=== PATIENT | female | born 1970 | race Caucasian/White ===

== ENCOUNTER 2018-03-17 11:40 | Observation (INO) ==
--- NOTE | 2018-03-17 12:28 | ED ---
HPI General Chief complaint: Recheck/Abnormal Lab/Rx Stated complaint: Medical Complaint Time Seen by Provider: 03/17/18 12:35 Source: patient Mode of arrival: ambulatory Limitations: no limitations History of Present Illness HPI narrative: Patient comes in stating that her primary care Dr. Soto Barbosa gave her a call stating that her hemoglobin is low at 7.... She was advised to come to the ER. Patient denies any active chest pain shortness of breath dizziness lightheadedness. Patient denied any hematuria, hematochezia, or GI bleed. However patient does state that she has a very heavy flow of her menses...deneis nsaids, or any other anticoagulants Radiation: non-radiation Severity: mild Pain Consistency: now resolved Relieving factors: none Exacerbating factors: none Associated symptoms: denies other symptoms Treatments prior to arrival: none Related Data Previous Rx's Medication Instructions Recorded docusate sodium [Colace] 100 mg PO DAILY #30 cap 03/18/18 ferrous sulfate [FerrouSul] 325 mg PO DAILY 30 Days #30 tab 03/18/18 Allergies Allergy/AdvReac Type Severity Reaction Status Date / Time No Known Allergies Allergy Uncoded 03/04/12 16:21 Review of Systems Except as stated in HPI: all other systems reviewed are negative PMFSH History History Provided By: Patient Social History Social History Substance History: No History of Abuse Second Hand Smoke Exposure: No Smoking Status: Never smoker How Often Do You Have a Drink Containing Alcohol: 2 to 3 times a week Recent Travel in [facility] within the Last 8 Weeks: No Recent Out of Country Travel within the Last 8 Weeks: No Exam Narrative Exam Narrative: GENERAL: Well-nourished, well-developed female with conjunctival pallor noted SKIN: Warm and dry. HEAD: Atraumatic. Normocephalic. EYES: Pupils equal and round. No scleral icterus. No injection or drainage. ENT: No nasal bleeding or discharge. Mucous membranes pink and moist. NECK: Trachea midline. No JVD. CARDIOVASCULAR: Regular rate and rhythm. no rubs or gallops RESPIRATORY: No accessory muscle use. Clear to auscultation. Breath sounds equal bilaterally. GASTROINTESTINAL: Abdomen soft, non-tender, nondistended. No rebound or guarding MUSCULOSKELETAL: Extremities without clubbing, cyanosis, or edema. No obvious deformities. NEUROLOGICAL: Awake and alert. No obvious cranial nerve deficits. Motor grossly within normal limits. Five out of 5 muscle strength in the arms and legs. Normal speech. PSYCHIATRIC: Appropriate mood and affect; insight and judgment normal. Course Initial Documented Vital Signs Temperature 98.9 F 03/17/18 11:58 Pulse Rate 62 03/17/18 11:58 Respiratory Rate 16 03/17/18 11:58 Blood Pressure 115/59 L 03/17/18 11:58 Pulse Oximetry 100 03/17/18 11:58 Last Documented Vital Signs Temperature 98.2 F 03/18/18 12:00 Pulse Rate 63 03/18/18 12:00 Respiratory Rate 16 03/18/18 12:00 Blood Pressure 120/66 03/18/18 12:00 Pulse Oximetry 96 03/18/18 12:00 Medical Decision Making Lab Data Lab results reviewed: Yes I reviewed the patient's lab results. Result diagrams: 03/18/18 05:01 03/18/18 05:01 Lab Results 03/17/18 03/17/18 03/17/18 Range/Units 12:35 12:35 12:35 WBC 6.1 (4.0-11.0) th/mm3 RBC 3.74 L (4.00-5.30) mil/mm3 Hgb 7.4 L (11.6-15.3) gm/dL Hct 24.9 L (35.0-46.0) % MCV 66.6 L (80.0-100.0) fL MCH 19.9 L (27.0-34.0) pg MCHC 29.8 L (32.0-36.0) % RDW 18.4 H (11.6-17.2) % Plt Count 341 (150-450) th/mm3 MPV 9.0 (7.0-11.0) fL Neut % (Auto) 61.9 (16.0-70.0) % Lymph % (Auto) 27.1 (9.0-44.0) % Whitman % (Auto) 8.6 H (0.0-8.0) % Eos % (Auto) 1.3 (0.0-4.0) % Baso % (Auto) 1.1 (0.0-2.0) % Neut # (Auto) 3.8 (1.8-7.7) th/mm3 Lymph # (Auto) 1.7 (1.0-4.8) th/mm3 Whitman # (Auto) 0.5 (0.0-0.9) th/mm3 Eos # (Auto) 0.1 (0.0-0.4) th/mm3 Baso # (Auto) 0.1 (0.0-0.2) th/mm3 WBC Differential . Differential Comment Auto diff final Sodium 142 (136-145) meq/L Potassium 3.5 (3.5-5.1) meq/L Chloride 108 H (98-107) meq/L Carbon Dioxide 27.1 (21.0-32.0) meq/L Anion Gap 7 (5-15) meq/L BUN 10 (7-18) mg/dL Creatinine 0.54 (0.50-1.00) mg/dL Estimated GFR Greater than 89 (>89) mL/min Random Glucose 88 (74-106) mg/dL Calcium 8.6 (8.5-10.1) mg/dL Total Bilirubin 0.8 (0.2-1.0) mg/dL AST 11 L (15-37) U/L ALT 21 (10-53) U/L Alkaline Phosphatase 46 (45-117) U/L Total Protein 7.1 (6.4-8.2) g/dL Albumin 4.0 (3.4-5.0) g/dL Beta HCG, Qual (0-5) mIU/mL Urine Color (Yellw/Straw) Urine Clarity (Clear) Urine pH (5.0-8.5) Ur Specific [place] (1.002-1.035) Urine Protein (Neg-Trace) mg/dL Urine Glucose (UA) (Negative) mg/dL Urine Ketones (Negative) mg/dL Urine Occult Blood (Negative) Urine Nitrate (Negative) Urine Bilirubin (Negative) Urine Urobilinogen (Less than 2) mg/dL Ur Leukocyte Esterase (Negative) Urine WBC (0-5) /hpf Urine Mucus (Occasional) /lpf Micro UA Comment Urine Culture Comments Blood Type O Positive Blood Type Recheck Required Antibody Screen Negative MTS Gel Crossmatch 03/17/18 03/17/18 03/17/18 Range/Units 12:35 12:35 13:28 WBC (4.0-11.0) th/mm3 RBC (4.00-5.30) mil/mm3 Hgb (11.6-15.3) gm/dL Hct (35.0-46.0) % MCV (80.0-100.0) fL MCH (27.0-34.0) pg MCHC (32.0-36.0) % RDW (11.6-17.2) % Plt Count (150-450) th/mm3 MPV (7.0-11.0) fL Neut % (Auto) (16.0-70.0) % Lymph % (Auto) (9.0-44.0) % Whitman % (Auto) (0.0-8.0) % Eos % (Auto) (0.0-4.0) % Baso % (Auto) (0.0-2.0) % Neut # (Auto) (1.8-7.7) th/mm3 Lymph # (Auto) (1.0-4.8) th/mm3 Whitman # (Auto) (0.0-0.9) th/mm3 Eos # (Auto) (0.0-0.4) th/mm3 Baso # (Auto) (0.0-0.2) th/mm3 WBC Differential Differential Comment Sodium (136-145) meq/L Potassium (3.5-5.1) meq/L Chloride (98-107) meq/L Carbon Dioxide (21.0-32.0) meq/L Anion Gap (5-15) meq/L BUN (7-18) mg/dL Creatinine (0.50-1.00) mg/dL Estimated GFR (>89) mL/min Random Glucose (74-106) mg/dL Calcium (8.5-10.1) mg/dL Total Bilirubin (0.2-1.0) mg/dL AST (15-37) U/L ALT (10-53) U/L Alkaline Phosphatase (45-117) U/L Total Protein (6.4-8.2) g/dL Albumin (3.4-5.0) g/dL Beta HCG, Qual Less than 1.0 (0-5) mIU/mL Urine Color Yellow (Yellw/Straw) Urine Clarity Clear (Clear) Urine pH 6.0 (5.0-8.5) Ur Specific [place] 1.024 (1.002-1.035) Urine Protein Negative (Neg-Trace) mg/dL Urine Glucose (UA) Negative (Negative) mg/dL Urine Ketones Negative (Negative) mg/dL Urine Occult Blood Negative (Negative) Urine Nitrate Negative (Negative) Urine Bilirubin Negative (Negative) Urine Urobilinogen Less than 2 (Less than 2) mg/dL Ur Leukocyte Esterase Negative (Negative) Urine WBC 2 (0-5) /hpf Urine Mucus Many H (Occasional) /lpf Micro UA Comment Culture not ind Urine Culture Comments Culture not ind Blood Type Blood Type Recheck Antibody Screen MTS Gel Crossmatch See Detail 03/18/18 03/18/18 Range/Units 05:01 05:01 WBC 7.4 (4.0-11.0) th/mm3 RBC 4.71 (4.00-5.30) mil/mm3 Hgb 10.8 L D (11.6-15.3) gm/dL Hct 34.1 L (35.0-46.0) % MCV 72.4 L D (80.0-100.0) fL MCH 22.8 L (27.0-34.0) pg MCHC 31.6 L (32.0-36.0) % RDW 21.1 H D (11.6-17.2) % Plt Count 272 (150-450) th/mm3 MPV 9.8 (7.0-11.0) fL Neut % (Auto) 61.8 (16.0-70.0) % Lymph % (Auto) 27.1 (9.0-44.0) % Whitman % (Auto) 8.0 (0.0-8.0) % Eos % (Auto) 1.9 (0.0-4.0) % Baso % (Auto) 1.2 (0.0-2.0) % Neut # (Auto) 4.6 (1.8-7.7) th/mm3 Lymph # (Auto) 2.0 (1.0-4.8) th/mm3 Whitman # (Auto) 0.6 (0.0-0.9) th/mm3 Eos # (Auto) 0.1 (0.0-0.4) th/mm3 Baso # (Auto) 0.1 (0.0-0.2) th/mm3 WBC Differential . Differential Comment Auto diff final Sodium 142 (136-145) meq/L Potassium 3.4 L (3.5-5.1) meq/L Chloride 108 H (98-107) meq/L Carbon Dioxide 27.3 (21.0-32.0) meq/L Anion Gap 7 (5-15) meq/L BUN 11 (7-18) mg/dL Creatinine 0.58 (0.50-1.00) mg/dL Estimated GFR Greater than 89 (>89) mL/min Random Glucose 87 (74-106) mg/dL Calcium 8.6 (8.5-10.1) mg/dL Total Bilirubin (0.2-1.0) mg/dL AST (15-37) U/L ALT (10-53) U/L Alkaline Phosphatase (45-117) U/L Total Protein (6.4-8.2) g/dL Albumin (3.4-5.0) g/dL Beta HCG, Qual (0-5) mIU/mL Urine Color (Yellw/Straw) Urine Clarity (Clear) Urine pH (5.0-8.5) Ur Specific [place] (1.002-1.035) Urine Protein (Neg-Trace) mg/dL Urine Glucose (UA) (Negative) mg/dL Urine Ketones (Negative) mg/dL Urine Occult Blood (Negative) Urine Nitrate (Negative) Urine Bilirubin (Negative) Urine Urobilinogen (Less than 2) mg/dL Ur Leukocyte Esterase (Negative) Urine WBC (0-5) /hpf Urine Mucus (Occasional) /lpf Micro UA Comment Urine Culture Comments Blood Type Blood Type Recheck Antibody Screen MTS Gel Crossmatch Imaging Data Radiologist's impression: Pelvis Ultrasound 03/17/18 00:00 CONCLUSION: 1. Multiple uterine fibroids with largest measurements given above. Endometrial stripe measures 12 mm. 2. Bilateral small ovarian cysts. Additional left adnexal cyst measures up to 1.4 cm in diameter. Discharge Plan Discharge Disposition Patient Disposition: 01 Discharge Home Discharge Condition Condition: Stable Discharge Order Discharge Orders: Discharge Order (Routine); Ordered 03/18/18 Ordered By: Lauren Esparza Discharge Details Anticipated Discharge Date: 03/18/18 Diagnosis: Uterine fibroid, Symptomatic anemia Physicians Team ED Provider: Edgar Gray Primary Care Provider: Soto Barbosa Attending Provider: Hong Akins Other Providers: Mariano Lovelace Discharge Interventions Interventions: ED Discharge Assessment Last Done: 03/17/18 16:42 Status ED Status: Left Department Discharge Information Discharge Date/Time: 03/17/18 16:43
[2018-03-17 12:57] LABS: Baso # (Auto) 0.1 th/mm3 (0.0-0.2); Baso % (Auto) 1.1 % (0.0-2.0); Eos # (Auto) 0.1 th/mm3 (0.0-0.4); Eos % (Auto) 1.3 % (0.0-4.0); Hematocrit 24.9 % (35.0-46.0); Hemoglobin 7.4 gm/dL (11.6-15.3); Lymph # (Auto) 1.7 th/mm3 (1.0-4.8); Lymph % (Auto) 27.1 % (9.0-44.0); Mean Corpuscular Hemoglobin 19.9 pg (27.0-34.0); Mean Corpuscular Volume 66.6 fL (80.0-100.0); Mono # (Auto) 0.5 th/mm3 (0.0-0.9); Mono % (Auto) 8.6 % (0.0-8.0); Neut # (Auto) 3.8 th/mm3 (1.8-7.7); Neut % (Auto) 61.9 % (16.0-70.0); Platelet Count 341 th/mm3 (150-450); Red Blood Count 3.74 mil/mm3 (4.00-5.30); Red Cell Distribution Width 18.4 % (11.6-17.2); White Blood Count 6.1 th/mm3 (4.0-11.0)
[2018-03-17 13:04] LABS: Mean Corpuscular HGB Conc 29.8 % (32.0-36.0)
[2018-03-17 13:07] LABS: Bilirubin,Urine Negative (Negative); Clarity,Urine Clear (Clear); Color,Urine Yellow (Yellw/Straw); Glucose,Urine (UA) Negative (Negative); Leukocyte Esterase,Urine Negative (Negative); Mucus,Urine Many /lpf (Occasional); Nitrite,Urine Negative (Negative); Specific Gravity,Urine 1.024 (1.002-1.035)
[2018-03-17 13:15] LABS: Alanine Aminotransferase 21 U/L (10-53); Anion Gap 7 meq/L (5-15); Aspartate Aminotransferase 11 U/L (15-37); Blood Urea Nitrogen 10 mg/dL (7-18); Calcium 8.6 mg/dL (8.5-10.1); Carbon Dioxide 27.1 meq/L (21.0-32.0); Chloride 108 meq/L (98-107); Glomerular Filtration Rate Greater Than 89 mL/min (>89); Glucose,Random 88 mg/dL (74-106); Potassium 3.5 meq/L (3.5-5.1); Sodium 142 meq/L (136-145)
[2018-03-17 13:17] LABS: Alkaline Phosphatase 46 U/L (45-117); Total Protein 7.1 g/dL (6.4-8.2)
[2018-03-17] MEDS ORDERED: Sodium Chlor 0.9% Inj 250 ML IV.SIG SCH (14:00)
[2018-03-17] MEDS ORDERED: Acetaminophen 325 MG Tablet PO PRN (15:51)
--- NOTE | 2018-03-17 16:12 | P.HPIM ---
History of Present Illness Primary Care Physician: Soto Barbosa MD Chief Complaint: Anemia History of Present Illness: Mrs. Madrid is a pleasant 47 y/o female with history of heavy menstrual periods and hx of anemia. She was sent to the ED at [facility] on 03/17/18 by her PCP for anemia. She was newly established with [facility] PCP earlier this month and had blood work on 02/17/18 which noted a Hgb 8.4/Hct 30.0, MCV 71, MCH 19.9. She reports have heavy menstrual periods lasting around 5 days. Pt had repeat labs on and Hgb had decreased to 7.1. Iron studies were performed and her iron saturation was 2%, serum iron 10, and TIBC was 441. Pt was sent to the ED for transfusion. No reported melena, BRBPR, hematochezia, hematemesis or coffee- ground emesis. No previous GI workup. Pt has noted some chest pain intermittently for the last week or so. Pt has noted some palpitations for the last 2 weeks. She denies any dizziness or SOB. LMP started around 8 days ago, she stopped having vaginal bleeding around 3 days ago. Pt was seen by Dr. Pressley in 12/2017 for pap smear. 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 PROCESS EQUIPMENT OPERATOR related malignancy Social Hx Denies any tobacco or illicit drug use Occasional alcohol use, may one or two drinks per week - Diagnosis (1) Iron deficiency anemia Review of Systems Constitutional: Denies chills, Denies fever(s) Eyes: Denies loss of vision Cardiovascular: Denies chest pain, Denies leg swelling, Denies rapid, pounding, or irregular heartbeat, Denies shortness of breath Respiratory: Denies cough, Denies shortness of breath Gastrointestinal: Denies abdominal pain, Denies bloating, Denies constipation, Denies loose stools, Denies nausea, Denies vomiting Genitourinary: Reports heavy periods Musculoskeletal: Denies back pain, Denies joint pain Skin/Breast: Denies rash Neurologic: Denies dizziness PMFSH - History History Provided By: Patient - Tobacco History Second Hand Smoke Exposure: No Tobacco Use In Past 30 Days: No Smoking Status: Never smoker - Alcohol History How Often Do You Have a Drink Containing Alcohol: 2 to 3 times a week - Substance Use History Substance History: No History of Abuse - Travel History Recent Travel in the [place] Within the Last 8 Weeks: No Recent Travel Out of the Country Within the Last 8 Weeks: No - Immunization History Tetanus Immunization: >5 Years Hx Influenza Vaccine This Season: No Medications and Allergies Allergies Allergy/AdvReac Type Severity Reaction Status Date / Time No Known Allergies Allergy Verified 05/12/18 12:32 Active Medications: Active Medications Acetaminophen (Tylenol) 650 mg PO Q4H PRN PRN Reason: Temp > 100.4 Al Hydroxide/Mg Hydroxide (Milk Of Raj Macario) 30 ml PO Q12H PRN PRN Reason: Mild Constipation Diphenhydramine HCl (Benadryl) 25 mg PO Q6H PRN PRN Reason: allergic reactions Sodium Chloride (Ns Inj) 250 mls @ 15 mls/hr IV.SIG ONCE SAQIB Stop: 03/18/18 06:39 Ondansetron HCl (Zofran Odt) 4 mg PO Q4H PRN PRN Reason: Nausea And Vomiting Senna/Docusate Sodium (Aiyana-Colace) 1 tab PO BID SAQIB Sodium Chloride (Ns Flush) 2 ml IV.FLUSH PRN PRN PRN Reason: FLUSH AFTER USING IV ACCESS Temazepam (Restoril) 15 mg PO HS PRN PRN Reason: INSOMNIA Exam Vital signs: Vital Signs 03/17/18 11:58 03/17/18 12:38 03/17/18 15:40 Temperature 98.9 F 98.4 F Pulse Rate 62 66 Respiratory Rate 16 16 Blood Pressure 115/59 L 120/69 Pulse Oximetry 100 99 Intake & Output 03/16/18 03/17/18 03/17/18 18:59 06:59 18:59 Intake Total 0 / 0 Balance 0 / 0 Weight 52.617 kg Intake: Intake (Blood Product) Amt 0 / 0 Rbc As-3 Leukoreduced Unit 0 / 0 [id number] Narrative: GENERAL: NAD, AAOx3 SKIN: Warm and dry. HEENT: Atraumatic. Normocephalic. Pupils equal and round. No scleral icterus. No injection or drainage. No nasal bleeding or discharge. Mucous membranes pink and moist. NECK: Trachea midline. No JVD. CARDIO: Regular RESP: Clear to auscultation. Breath sounds equal bilaterally. ABD: +BS, soft, non-tender, nondistended. Hepatic and splenic margins not palpable. EXT: Extremities without clubbing, cyanosis, or edema. No obvious deformities. NEURO: Awake and alert. No obvious cranial nerve deficits. Motor grossly within normal limits. Five out of 5 muscle strength in the arms and legs. Normal speech. Results - Labs CBC & Chem 7: 03/18/18 05:01 03/18/18 05:01 Labs: Short CBC 03/17/18 Range/Units 12:35 WBC 6.1 (4.0-11.0) th/mm3 Hgb 7.4 L (11.6-15.3) gm/dL Hct 24.9 L (35.0-46.0) % Plt Count 341 (150-450) th/mm3 BMP 03/17/18 12:35 Sodium 142 Potassium 3.5 Chloride 108 H Carbon Dioxide 27.1 BUN 10 Creatinine 0.54 Calcium 8.6 Liver Function 03/17/18 Range/Units 12:35 Total Bilirubin 0.8 (0.2-1.0) mg/dL AST 11 L (15-37) U/L ALT 21 (10-53) U/L Alkaline Phosphatase 46 (45-117) U/L Albumin 4.0 (3.4-5.0) g/dL Urine 03/17/18 Range/Units 12:35 Urine Color Yellow (Yellw/Straw) Urine Clarity Clear (Clear) Urine pH 6.0 (5.0-8.5) Ur Specific [place] 1.024 (1.002-1.035) Urine Protein Negative (Neg-Trace) mg/dL Urine Glucose (UA) Negative (Negative) mg/dL Caprini VTE Risk Assessment Caprini VTE Risk Assessment: No/Low Risk (score <= 1) Caprini Risk Assessment Model: Point Value = 1 Point Value = 2 Point Value = 3 Point Value = 5 Age 41-60 Minor surgery BMI > 25 kg/m2 Swollen legs Varicose veins or History of unexplained or recurrent spontaneous Oral contraceptives or hormone replacement Sepsis (< 1 month) Serious lung disease, including pneumonia (< 1 month) Abnormal pulmonary function Acute myocardial infarction Congestive heart failure (< 1 month) History of inflammatory bowel disease Medical patient at bed rest Age 61-74 Arthroscopic surgery Major open surgery (> 45 min) Laparoscopic surgery (> 45 min) Malignancy Confined to bed (> 72 hours) Immobilizing plaster cast Central venous access Age >= 75 History of VTE Family history of VTE Factor V Leiden Prothrombin [id number] Lupus anticoagulant Anticardiolipin antibodies Elevated serum homocysteine Heparin-induced thrombocytopenia Other congenital or acquired thrombophilia Stroke (< 1 month) Elective arthroplasty Hip, pelvis, or leg fracture Acute spinal cord injury (< 1 month) Prophylaxis Regimen: Total Risk Factor Score Risk Level Prophylaxis Regimen 0-1 Low Early ambulation 2 Moderate Order ONE of the following: *Sequential Compression Device (SCD) *Heparin 5000 units SQ BID 3-4 Higher Order ONE of the following medications: *Heparin 5000 units SQ TID *Enoxaparin/Lovenox 40 mg SQ daily (WT < 150 kg, CrCl > 30 mL/min) *Enoxaparin/Lovenox 30 mg SQ daily (WT < 150 kg, CrCl > 10-29 mL/min) *Enoxaparin/Lovenox 30 mg SQ BID (WT < 150 kg, CrCl > 30 mL/min) AND/OR *Sequential Compression Device (SCD) 5 or more Highest Order ONE of the following medications: *Heparin 5000 units SQ TID (Preferred with Epidurals) *Enoxaparin/Lovenox 40 mg SQ daily (WT < 150 kg, CrCl > 30 mL/min) *Enoxaparin/Lovenox 30 mg SQ daily (WT < 150 kg, CrCl > 10-29 mL/min) *Enoxaparin/Lovenox 30 mg SQ BID (WT < 150 kg, CrCl > 30 mL/min) AND *Sequential Compression Device (SCD) Assessment and Plan - Assessment (1) Iron deficiency anemia Code(s): D50.9 - Iron deficiency anemia, unspecified Status: Acute Plan: Iron deficiency anemia, symptomatic with chest pain and palpitations Heavy menses - Pt is a 47 y/o female with history of heavy menstrual periods and hx of anemia. - She was sent to the ED at [facility] on 03/17/18 by her PCP for anemia. - On 02/17/18 which noted a Hgb 8.4/Hct 30.0, MCV 71, MCH 19.9. She reports have heavy menstrual periods lasting around 5 days. - Pt had repeat labs on 03/16/18 and Hgb had decreased to 7.1. Iron studies were performed and her iron saturation was 2%, serum iron 10, and TIBC was 441. - LMP started around 8 days ago, she stopped having vaginal bleeding around 3 days ago. - Pt was seen by Dr. Pressley in 12/2017 for pap smear, consult CHEMICAL PROCESS EQUIPMENT OPERATOR - Pt is receiving 2 units of PRBCs currently - Repeat CBC in AM - ED reports that urine test was negative. - Pt reports that she is in the process of getting referred to GI for GI workup for the anemia as an outpt - Supportive care - Anticipate d/c home tomorrow if labs are stable and depending on further workup by CHEMICAL PROCESS EQUIPMENT OPERATOR - Pt will need to be on iron supplements - Attending Attestation The exam, history, and the medical decision-making described in the above note were completed with the assistance of the mid-level provider. I reviewed and agree with the findings presented. I attest that I had a [id number] encounter with the patient on the same day, and personally performed and documented my assessment and findings in the medical record. Patient examined. Assessment and plan formulated with Ariella Camargo PA-C. I agree with the above.
--- NOTE | 2018-03-17 18:46 | P.HPOB ---
History of Present Illness Service: [place] [facility] Primary Care Physician: Soto Barbosa MD Chief Complaint: Anemia History of Present Illness: 47-year-old female here today in the ER as recommended by her PCP. She was seen for a routine annual exam on 02/17/2018, she had blood work done and had a reviewed with her today. She was told she had significant anemia and was recommended to come to the ER for evaluation. I do not have that outpatient blood work to review but in the admission H&P was noted to be hemoglobin of 8.4 and hematocrit of 30.0 with MCV of 71. Repeat labs on 03/17 showed Hb of 7.1 and Iron studies shosing saturation was 2%, serum iron 10, and TIBC was 441. Patient states that over the past week she is felt dizziness, lethargy, and dyspnea but denies chest pain. She has a history of heavy cycles, they have never been treated and this is her first transfusion. She been told she was anemic in the past but never required anything per her report. She has regular monthly cycles that are heavy, last 4-5 days with overflow and passage of large clots. No reported melena, BRBPR, hematochezia, hematemesis or coffee-ground emesis. No previous GI workup. Pt was seen by Dr. Pressley (who is a partner of our group) in december of this year but the patient did not address her bleeding then with her. Past medical history: 1. Fe Def anemia 2. HMB Past surgical history: 1. BTL Medications: 1. None Allergies: 1. NKDA Obstetrical history: 2, 2003 and 2005. 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 Normal Pap this december. 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 PMF - History History Provided By: Patient - Tobacco History Second Hand Smoke Exposure: No Tobacco Use In Past 30 Days: No Smoking Status: Never smoker - Alcohol History How Often Do You Have a Drink Containing Alcohol: 2 to 3 times a week - Substance Use History Substance History: No History of Abuse - Travel History Recent Travel in the [place] Within the Last 8 Weeks: No Recent Travel Out of the Country Within the Last 8 Weeks: No - Immunization History Tetanus Immunization: >5 Years Hx Influenza Vaccine This Season: No Medications and Allergies Active Medications: Active Medications Acetaminophen (Tylenol) 650 mg PO Q4H PRN PRN Reason: Temp > 100.4 Al Hydroxide/Mg Hydroxide (Milk Of Raj Macario) 30 ml PO Q12H PRN PRN Reason: Mild Constipation Diphenhydramine HCl (Benadryl) 25 mg PO Q6H PRN PRN Reason: allergic reactions Sodium Chloride (Ns Inj) 250 mls @ 15 mls/hr IV.SIG ONCE SAQIB Stop: 03/18/18 06:39 Ondansetron HCl (Zofran Odt) 4 mg PO Q4H PRN PRN Reason: Nausea And Vomiting Senna/Docusate Sodium (Aiyana-Colace) 1 tab PO BID SAQIB Sodium Chloride (Ns Flush) 2 ml IV.FLUSH PRN PRN PRN Reason: FLUSH AFTER USING IV ACCESS Temazepam (Restoril) 15 mg PO HS PRN PRN Reason: INSOMNIA Allergies Allergy/AdvReac Type Severity Reaction Status Date / Time No Known Allergies Allergy Uncoded 03/04/12 16:21 Home Medications Medication Instructions Recorded Confirmed Type No Known Home Medications 03/17/18 03/17/18 History Exam Vital signs: Vital Signs 03/17/18 11:58 03/17/18 12:38 03/17/18 15:40 Temperature 98.9 F 98.4 F Pulse Rate 62 66 Respiratory Rate 16 16 Blood Pressure 115/59 L 120/69 Pulse Oximetry 100 99 03/17/18 15:45 03/17/18 15:50 03/17/18 15:55 Temperature 98.2 F 98.5 F 98.2 F Pulse Rate 63 56 L 58 L Respiratory Rate 16 16 16 Blood Pressure 121/73 119/69 122/71 Pulse Oximetry 100 100 100 03/17/18 16:00 Temperature 98.4 F Pulse Rate 55 L Respiratory Rate 18 Blood Pressure 127/72 Pulse Oximetry 100 Intake & Output 03/16/18 03/17/18 03/17/18 18:59 06:59 18:59 Intake Total 400 / 400 Balance 400 / 400 Weight 52.617 kg Intake: Intake (Blood Product) Amt 400 / 400 Rbc As-3 Leukoreduced Unit 400 / 400 [id number] Other: Weight On Admission 52.617 kg - Additional findings Additional findings: General: Alert and oriented, well nourished, no acute distress. Skin: Skin is warm, dry and pink, no rashes or lesions. Eye: EOMI, normal conjunctiva HENT: Normocephalic, normal hearing, no scleral icterus. Lungs: non-labored respiration. Heart: Regular rate. Abdomen: Soft, non-tender, non-distended, normal bowel sounds, no masses. : deferred Musculoskeletal: Normal range of motion. Neurologic: Awake, alert and oriented x 3, no gross focal neurological deficits Psychiatric: Cooperative, appropriate mood and affect. Results - Labs CBC & Chem 7: 03/17/18 12:35 03/17/18 12:35 Labs: Laboratory Results - last 24 hr 03/17/18 03/17/18 03/17/18 12:35 12:35 12:35 WBC 6.1 RBC 3.74 L Hgb 7.4 L Hct 24.9 L MCV 66.6 L MCH 19.9 L MCHC 29.8 L RDW 18.4 H Plt Count 341 MPV 9.0 Neut % (Auto) 61.9 Lymph % (Auto) 27.1 [place] % (Auto) 8.6 H Eos % (Auto) 1.3 Baso % (Auto) 1.1 Neut # (Auto) 3.8 Lymph # (Auto) 1.7 [place] # (Auto) 0.5 Eos # (Auto) 0.1 Baso # (Auto) 0.1 WBC Differential . Differential Comment Auto diff final Sodium 142 Potassium 3.5 Chloride 108 H Carbon Dioxide 27.1 Anion Gap 7 BUN 10 Creatinine 0.54 Estimated GFR Greater than 89 Random Glucose 88 Calcium 8.6 Total Bilirubin 0.8 AST 11 L ALT 21 Alkaline Phosphatase 46 Total Protein 7.1 Albumin 4.0 Urine Color Urine Clarity Urine pH Ur Specific [place] Urine Protein Urine Glucose (UA) Urine Ketones Urine Occult Blood Urine Nitrate Urine Bilirubin Urine Urobilinogen Ur Leukocyte Esterase Urine WBC Urine Mucus Micro UA Comment Urine Culture Comments Blood Type O Positive Blood Type Recheck Required Antibody Screen Negative MTS Gel Crossmatch 03/17/18 03/17/18 12:35 13:28 WBC RBC Hgb Hct MCV MCH MCHC RDW Plt Count MPV Neut % (Auto) Lymph % (Auto) [place] % (Auto) Eos % (Auto) Baso % (Auto) Neut # (Auto) Lymph # (Auto) [place] # (Auto) Eos # (Auto) Baso # (Auto) WBC Differential Differential Comment Sodium Potassium Chloride Carbon Dioxide Anion Gap BUN Creatinine Estimated GFR Random Glucose Calcium Total Bilirubin AST ALT Alkaline Phosphatase Total Protein Albumin Urine Color Yellow Urine Clarity Clear Urine pH 6.0 Ur Specific [place] 1.024 Urine Protein Negative Urine Glucose (UA) Negative Urine Ketones Negative Urine Occult Blood Negative Urine Nitrate Negative Urine Bilirubin Negative Urine Urobilinogen Less than 2 Ur Leukocyte Esterase Negative Urine WBC 2 Urine Mucus Many H Micro UA Comment Culture not ind Urine Culture Comments Culture not ind Blood Type Blood Type Recheck Antibody Screen MTS Gel Crossmatch See Detail Caprini VTE Risk Assessment Caprini VTE Risk Assessment: No/Low Risk (score <= 1) Caprini Risk Assessment Model: Point Value = 1 Point Value = 2 Point Value = 3 Point Value = 5 Age 41-60 Minor surgery BMI > 25 kg/m2 Swollen legs Varicose veins or History of unexplained or recurrent spontaneous Oral contraceptives or hormone replacement Sepsis (< 1 month) Serious lung disease, including pneumonia (< 1 month) Abnormal pulmonary function Acute myocardial infarction Congestive heart failure (< 1 month) History of inflammatory bowel disease Medical patient at bed rest Age 61-74 Arthroscopic surgery Major open surgery (> 45 min) Laparoscopic surgery (> 45 min) Malignancy Confined to bed (> 72 hours) Immobilizing plaster cast Central venous access Age >= 75 History of VTE Family history of VTE Factor V Leiden Prothrombin [id number] Lupus anticoagulant Anticardiolipin antibodies Elevated serum homocysteine Heparin-induced thrombocytopenia Other congenital or acquired thrombophilia Stroke (< 1 month) Elective arthroplasty Hip, pelvis, or leg fracture Acute spinal cord injury (< 1 month) Prophylaxis Regimen: Total Risk Factor Score Risk Level Prophylaxis Regimen 0-1 Low Early ambulation 2 Moderate Order ONE of the following: *Sequential Compression Device (SCD) *Heparin 5000 units SQ BID 3-4 Higher Order ONE of the following medications: *Heparin 5000 units SQ TID *Enoxaparin/Lovenox 40 mg SQ daily (WT < 150 kg, CrCl > 30 mL/min) *Enoxaparin/Lovenox 30 mg SQ daily (WT < 150 kg, CrCl > 10-29 mL/min) *Enoxaparin/Lovenox 30 mg SQ BID (WT < 150 kg, CrCl > 30 mL/min) AND/OR *Sequential Compression Device (SCD) 5 or more Highest Order ONE of the following medications: *Heparin 5000 units SQ TID (Preferred with Epidurals) *Enoxaparin/Lovenox 40 mg SQ daily (WT < 150 kg, CrCl > 30 mL/min) *Enoxaparin/Lovenox 30 mg SQ daily (WT < 150 kg, CrCl > 10-29 mL/min) *Enoxaparin/Lovenox 30 mg SQ BID (WT < 150 kg, CrCl > 30 mL/min) AND *Sequential Compression Device (SCD) Assessment and Plan - Plan 47 yo admitted with HMB and anemia 1. HMB / anemia: patient status post 1 unit PRBCs, plan for second and repeat CBC in the morning. Patient not actively bleeding now so no need to treat her cycles acutely. Recommended to the patient to call for follow-up in the office in 1-2 weeks after discharge for endometrial sampling and further discuss with Dr. Pressley her management options. Ultrasound ordered to better characterize the uterus thank you for the consult, I sign off, please call if you have any questions or concerns. .
[2018-03-17] MEDS ORDERED: Temazepam 15 MG Capsule PO PRN (21:00)
[2018-03-17] MEDS: Senna/Docusate Sodium 8.6/50 MG Tablet PO SCH (21:06)
--- NOTE | 2018-03-17 21:25 | US ---
EXAM DATE: 03/17/2018 9:12 PM EDT AGE/SEX: 47 years / Female INDICATIONS: Heavy menstrual cycles. CLINICAL DATA: This is the patient's initial encounter. Patient reports that signs and symptoms have been present for > 1 year and indicates a pain score of 5/10. MEDICAL/SURGICAL HISTORY: Anemia. None. COMPARISON: No prior exams available for comparison. MEASUREMENTS: Uterus:__8.5 x 4.7 x 6.9 cm Endometrial Stripe:__12 mm Right Ovary:__ 3.2 x 2.2 x 1.6 cm Left Ovary:__ 3.3 x 1.9 x 1.0 cm FINDINGS: Uterus: Multiple circumscribed uterine mass is present characteristic of fibroids. Largest fibroid m easuring up to 4.2 cm and 3 cm in diameter with a pedunculated fibroid indenting slightly on the blad masoud. Small nabothian cysts. Endometrial Stripe: The endometrial stripe displays homogeneous echotexture. Right Ovary: Ovary contains no mass. Follicles are present. Left Ovary: Ovary contains no mass. Follicles are present. Fluid: No free fluid. Other: None. CONCLUSION: 1. Multiple uterine fibroids with largest measurements given above. Endometrial stripe measures 12 m m. 2. Bilateral small ovarian cysts. Additional left adnexal cyst measures up to 1.4 cm in diameter. Electronically signed by: Jonathan Camarillo MD 03/17/2018 9:24 PM EDT
[2018-03-17 23:39] VITALS: RESP 16
[2018-03-18 06:29] LABS: Baso # (Auto) 0.1 th/mm3 (0.0-0.2); Baso % (Auto) 1.2 % (0.0-2.0); Eos # (Auto) 0.1 th/mm3 (0.0-0.4); Eos % (Auto) 1.9 % (0.0-4.0); Hematocrit 34.1 % (35.0-46.0); Hemoglobin 10.8 gm/dL (11.6-15.3); Lymph % (Auto) 27.1 % (9.0-44.0); Mean Corpuscular HGB Conc 31.6 % (32.0-36.0); Mean Corpuscular Hemoglobin 22.8 pg (27.0-34.0); Mean Corpuscular Volume 72.4 fL (80.0-100.0); Mean Platelet Volume 9.8 fL (7.0-11.0); Mono # (Auto) 0.6 th/mm3 (0.0-0.9); Neut # (Auto) 4.6 th/mm3 (1.8-7.7); Neut % (Auto) 61.8 % (16.0-70.0); Platelet Count 272 th/mm3 (150-450); Red Blood Count 4.71 mil/mm3 (4.00-5.30); Red Cell Distribution Width 21.1 % (11.6-17.2); White Blood Count 7.4 th/mm3 (4.0-11.0)
[2018-03-18 06:56] LABS: Anion Gap 7 meq/L (5-15); Calcium 8.6 mg/dL (8.5-10.1); Carbon Dioxide 27.3 meq/L (21.0-32.0); Chloride 108 meq/L (98-107); Glomerular Filtration Rate Greater Than 89 mL/min (>89); Glucose,Random 87 mg/dL (74-106); Potassium 3.4 meq/L (3.5-5.1); Sodium 142 meq/L (136-145)
[2018-03-18 07:03] LABS: Blood Urea Nitrogen 11 mg/dL (7-18)
[2018-03-18] MEDS: Senna/Docusate Sodium 8.6/50 MG Tablet PO SCH (08:49)
--- NOTE | 2018-03-18 10:16 | ECG ---
Date Performed: 03/17/2018 Time Performed: 20:06:58 PTAGE: 47 years EKG: SINUS BRADYCARDIA BORDERLINE ECG NO PREVIOUS TRACING DOCTOR: Erendira Garrett Interpretating Date/Time 03/18/2018 10:13:56
--- NOTE | 2018-03-18 11:31 | P.DS ---
<Lauren Esparza W - Last Filed: 03/18/18 11:43> Date of admission: 03/17/18 15:29 Primary care physician: Soto Barbosa MD Attending physician on discharge: Hong Akins Anticipated date of discharge: 03/18/18 Brief History from admission: 47-year-old female here today in the ER as recommended by her PCP. She was seen for a routine annual exam on 02/17/2018, she had blood work done and had a reviewed with her today. She was told she had significant anemia and was recommended to come to the ER for evaluation. I do not have that outpatient blood work to review but in the admission H&P was noted to be hemoglobin of 8.4 and hematocrit of 30.0 with MCV of 71. Repeat labs on 03/17 showed Hb of 7.1 and Iron studies shosing saturation was 2%, serum iron 10, and TIBC was 441. Patient states that over the past week she is felt dizziness, lethargy, and dyspnea but denies chest pain. She has a history of heavy cycles, they have never been treated and this is her first transfusion. She been told she was anemic in the past but never required anything per her report. She has regular monthly cycles that are heavy, last 4-5 days with overflow and passage of large clots. No reported melena, BRBPR, hematochezia, hematemesis or coffee-ground emesis. No previous GI workup. Pt was seen by Dr. Pressley (who is a partner of our group) in december of this year but the patient did not address her bleeding then with her. Past medical history: 1. Fe Def anemia 2. HMB Past surgical history: 1. BTL Medications: 1. None Allergies: 1. NKDA Obstetrical history: 2, 2003 and 2006. 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 Normal Pap this december. 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 DS: Diagnosis - Discharge Diagnosis (1) Anemia Status: Acute DS: Medications - Discharge Medications Prescriptions: docusate sodium [Colace] 100 mg PO DAILY #30 cap ferrous sulfate [FerrouSul] 325 mg PO DAILY 30 Days #30 tab DS: Summary Hospital Course: Iron deficiency anemia, symptomatic with chest pain and palpitations Heavy menses - Pt is a 47 y/o female with history of heavy menstrual periods and hx of anemia. - She was sent to the ED at [facility] on 03/17/18 by her PCP for anemia. - On 02/17/18 which noted a Hgb 8.4/Hct 30.0, MCV 71, MCH 19.9. She reports have heavy menstrual periods lasting around 5 days. - Pt had repeat labs on 03/16/18 and Hgb had decreased to 7.1. Iron studies were performed and her iron saturation was 2%, serum iron 10, and TIBC was 441. - LMP started around 8 days ago, she stopped having vaginal bleeding around 3 days ago. - Pt was seen by Dr. Pressley in 12/2017 for pap smear, consult H[employer] WORKER - Pt is receiving 2 units of PRBCs currently - Repeat CBC (03/18) hgb 10.8, Hct 34.1 - Pt reports that she is in the process of getting referred to GI for GI workup for the anemia as an outpt - Supportive care - Patient evaluated by HOT BLAST WORKER who Recommended to the patient to call for follow-up in the office in 1-2 weeks after discharge for endometrial sampling and further discuss with Dr. Pressley her management options. - Pt will need to be on iron supplements - Time Spent with Patient Total time spent providing and/or coordinating discharge services: Greater than 30 minutes - Quality: VTE Deep Vein Thrombosis/Pulmonary Embolism Present on Admission: No Exam Vital signs: Vital Signs 03/17/18 11:58 03/17/18 12:38 03/17/18 15:40 Temperature 98.9 F 98.4 F Pulse Rate 62 66 Respiratory Rate 16 16 Blood Pressure 115/59 L 120/69 Pulse Oximetry 100 99 03/17/18 15:45 03/17/18 15:50 03/17/18 15:55 Temperature 98.2 F 98.5 F 98.2 F Pulse Rate 63 56 L 58 L Respiratory Rate 16 16 16 Blood Pressure 121/73 119/69 122/71 Pulse Oximetry 100 100 100 03/17/18 16:00 03/17/18 18:33 03/17/18 18:37 Temperature 98.4 F 98.3 F 98.3 F Pulse Rate 55 L 72 70 Respiratory Rate 18 18 20 Blood Pressure 127/72 120/70 115/71 Pulse Oximetry 100 100 100 03/17/18 18:59 03/17/18 23:39 03/18/18 01:00 Temperature 98.7 F 98.2 F Pulse Rate 79 64 63 Respiratory Rate 20 16 Blood Pressure 125/79 105/68 Pulse Oximetry 100 99 03/18/18 03:52 03/18/18 07:03 03/18/18 08:00 Temperature 98 F 98.5 F Pulse Rate 52 L 52 L 54 L Respiratory Rate 16 16 Blood Pressure 120/69 128/76 Pulse Oximetry 100 98 03/18/18 10:56 Temperature Pulse Rate 58 L Respiratory Rate Blood Pressure Pulse Oximetry Intake & Output 03/17/18 03/18/18 03/18/18 18:59 06:59 18:59 Intake Total 400 / 400 720 / 720 Balance 400 / 400 720 / 720 Weight 52.617 kg Intake: Oral 720 / 720 Intake (Blood Product) Amt 400 / 400 Rbc As-3 Leukoreduced Unit 400 / 400 [id number] Rbc As-3 Leukoreduced Unit 0 / 0 [id number] Other: # Voids 2 Date of Last Bowel Movement 03/16/18 Weight On Admission 52.617 kg Narrative: GENERAL: This is a well-nourished, well-developed patient, in no apparent distress. CARDIOVASCULAR: Regular rate and rhythm RESPIRATORY: Clear to auscultation. Breath sounds equal bilaterally. GASTROINTESTINAL: Abdomen soft, non-tender, nondistended. Normal active bowel sounds MUSCULOSKELETAL: Extremities without clubbing, cyanosis, or edema. NEURO: Alert & Oriented x4 to person, place, time, situation. Moves all ext x4 Results Procedures completed during hospitalization: None Labs on day of discharge: Labs from last 24 hours 03/18/18 03/18/18 03/17/18 05:01 05:01 13:28 WBC 7.4 RBC 4.71 Hgb 10.8 L D Hct 34.1 L MCV 72.4 L D MCH 22.8 L MCHC 31.6 L RDW 21.1 H D Plt Count 272 MPV 9.8 Neut % (Auto) 61.8 Lymph % (Auto) 27.1 Person % (Auto) 8.0 Eos % (Auto) 1.9 Baso % (Auto) 1.2 Neut # (Auto) 4.6 Lymph # (Auto) 2.0 Person # (Auto) 0.6 Eos # (Auto) 0.1 Baso # (Auto) 0.1 WBC Differential . Differential Comment Auto diff final Sodium 142 Potassium 3.4 L Chloride 108 H Carbon Dioxide 27.3 Anion Gap 7 BUN 11 Creatinine 0.58 Estimated GFR Greater than 89 Random Glucose 87 Calcium 8.6 Total Bilirubin AST ALT Alkaline Phosphatase Total Protein Albumin Beta HCG, Qual Urine Color Urine Clarity Urine pH Ur Specific [place] Urine Protein Urine Glucose (UA) Urine Ketones Urine Occult Blood Urine Nitrate Urine Bilirubin Urine Urobilinogen Ur Leukocyte Esterase Urine WBC Urine Mucus Micro UA Comment Urine Culture Comments Blood Type Blood Type Recheck Antibody Screen MTS Gel Crossmatch See Detail 03/17/18 03/17/18 03/17/18 12:35 12:35 12:35 WBC RBC Hgb Hct MCV MCH MCHC RDW Plt Count MPV Neut % (Auto) Lymph % (Auto) Person % (Auto) Eos % (Auto) Baso % (Auto) Neut # (Auto) Lymph # (Auto) Person # (Auto) Eos # (Auto) Baso # (Auto) WBC Differential Differential Comment Sodium Potassium Chloride Carbon Dioxide Anion Gap BUN Creatinine Estimated GFR Random Glucose Calcium Total Bilirubin AST ALT Alkaline Phosphatase Total Protein Albumin Beta HCG, Qual Less than 1.0 Urine Color Yellow Urine Clarity Clear Urine pH 6.0 Ur Specific [place] 1.024 Urine Protein Negative Urine Glucose (UA) Negative Urine Ketones Negative Urine Occult Blood Negative Urine Nitrate Negative Urine Bilirubin Negative Urine Urobilinogen Less than 2 Ur Leukocyte Esterase Negative Urine WBC 2 Urine Mucus Many H Micro UA Comment Culture not ind Urine Culture Comments Culture not ind Blood Type O Positive Blood Type Recheck Required Antibody Screen Negative MTS Gel Crossmatch 03/17/18 03/17/18 12:35 12:35 WBC 6.1 RBC 3.74 L Hgb 7.4 L Hct 24.9 L MCV 66.6 L MCH 19.9 L MCHC 29.8 L RDW 18.4 H Plt Count 341 MPV 9.0 Neut % (Auto) 61.9 Lymph % (Auto) 27.1 Person % (Auto) 8.6 H Eos % (Auto) 1.3 Baso % (Auto) 1.1 Neut # (Auto) 3.8 Lymph # (Auto) 1.7 Person # (Auto) 0.5 Eos # (Auto) 0.1 Baso # (Auto) 0.1 WBC Differential . Differential Comment Auto diff final Sodium 142 Potassium 3.5 Chloride 108 H Carbon Dioxide 27.1 Anion Gap 7 BUN 10 Creatinine 0.54 Estimated GFR Greater than 89 Random Glucose 88 Calcium 8.6 Total Bilirubin 0.8 AST 11 L ALT 21 Alkaline Phosphatase 46 Total Protein 7.1 Albumin 4.0 Beta HCG, Qual Urine Color Urine Clarity Urine pH Ur Specific [place] Urine Protein Urine Glucose (UA) Urine Ketones Urine Occult Blood Urine Nitrate Urine Bilirubin Urine Urobilinogen Ur Leukocyte Esterase Urine WBC Urine Mucus Micro UA Comment Urine Culture Comments Blood Type Blood Type Recheck Antibody Screen MTS Gel Crossmatch - Impressions ITS Impressions Pelvis Ultrasound 03/17/18 00:00 CONCLUSION: 1. Multiple uterine fibroids with largest measurements given above. Endometrial stripe measures 12 mm. 2. Bilateral small ovarian cysts. Additional left adnexal cyst measures up to 1.4 cm in diameter. <Hong Akins - Last Filed: 04/07/18 09:05> Date of admission: 03/17/18 15:29 Primary care physician: Soto Barbosa MD DS: Summary Hospital Course: Patient examined. Assessment and plan formulated with Lauren Esparza PA-C. I agree with the above. - Time Spent with Patient Total time spent providing and/or coordinating discharge services: Greater than 30 minutes Results - Impressions ITS Impressions Pelvis Ultrasound 03/17/18 00:00 CONCLUSION: 1. Multiple uterine fibroids with largest measurements given above. Endometrial stripe measures 12 mm. 2. Bilateral small ovarian cysts. Additional left adnexal cyst measures up to 1.4 cm in diameter. Discharge Plan - Discharge Order Discharge Orders: Discharge Order (Routine); Ordered 03/18/18 Ordered By: Lauren Esparza - Discharge Details Anticipated Discharge Date: 03/18/18 - Physicians Team Primary Care Provider: Soto Barbosa Attending Provider: Hong Akins Other Providers: Mariano Lovelace MD
[2018-03-18 12:06] VITALS: BP 120/66; PULSE 63; TEMP 98.2; O2SAT 96
== END 2018-03-18 12:52 | disposition home or self-care (01) ==
LOC: NEPFCDU 11:40 → NEPC 11:40 → NEDA 11:40 → NEPFCDU 16:21
PROVIDERS: ADMIT Hospitalist; ATTEND Hospitalist

== ENCOUNTER 2018-05-18 06:31 | Observation (INO) ==
[2018-05-18] MEDS ORDERED: Metoprolol Tartrate 25 MG Tablet PO ONE (06:56)
[2018-05-18] MEDS ORDERED: Chlorhexidine Gluconate 2% 1 Pack (2 Cloths) TOPICAL ONE (06:56)
[2018-05-18] MEDS ORDERED: Sodium Chlor 0.9% Inj 500 ML IV.SIG SCH (07:00)
[2018-05-18] MEDS ORDERED: Estrogens Congugated Vag Cream w/app 30 GM Tube VAGINAL ONE (07:12)
[2018-05-18] MEDS ORDERED: Bupivacaine/Epinephrine PF Inj 0.25% 10 ML Vial ONE ×2 (07:12→09:39)
[2018-05-18] MEDS ORDERED: fentaNYL Citrate Inj 100 MCG/2 ML Ampul ONE ×2 (08:11→11:54)
[2018-05-18] MEDS ORDERED: Glycopyrrolate Inj 1 MG/5 ML Syringe IV.PUSH ONE (08:30)
[2018-05-18] MEDS ORDERED: Neostigmine Inj 5 MG/5 ML Syringe IV.PUSH ONE (08:30)
[2018-05-18] MEDS ORDERED: Lidocaine PF 1% Inj 5 ML Syringe OTHER ONE (08:30)
[2018-05-18] MEDS ORDERED: Ketorolac Inj 30 MG/ML (IVP) Vial IV.PUSH ONE (08:30)
[2018-05-18] MEDS ORDERED: Bupivacaine/Epinephrine Inj 0.25% 50 ML Vial ONE (09:37)
[2018-05-18] MEDS ORDERED: Zolpidem Tartrate 5 MG Tablet PO PRN (11:40)
--- NOTE | 2018-05-18 11:49 | P.PCNOB ---
Pre-Op/Post-Op Diagnoses Operation Date: 05/18/18 08:30 <No data on this case meets the specified criteria> Menorrhagia, fibroid uterus, anemia Procedure: Procedures Operation Date: 05/18/18 08:30 Actual Procedures Side Surgeon p LAPAROSCOPIC ASSISTED VAGINAL HYSTERECTOMY, BILATERAL SALPINGECTOMY, LEFT OOPHORECTOMY, EXAM UNDER ANESTHESIA Farheen Pressley MD [employer]erks Supervisor: Christine Garcia Estimated blood loss (ml): 600 Anesthesia type: General Complications: none Fluids: crystalloid Fluid amount (mL): 2,400 Urine output (mL): 300 Specimen: uterus, left tube & ovary, other (right tubal segment) Findings: Enlarged uterus with several fibroids, largest 5 cm posterior subserosal. Evidence of prior partial salpingectomy. Normal ovaries bilaterally. Attenuation of round ligaments. right broad ligament and anterior cul de sac with scarring suggestive of endometriosis. Right ovary in close proximity to ureter, not removed due to concern for damage to ureter Normal liver edge and appendix Disposition: PACU Narrative: DVT PROPHYLAXIS: Sequential compression devices on extremities. PREOPERATIVE ANTIBIOTICS: Ancef 1 g IV preincision COMPLICATIONS: None. COUNTS: Correct x 3. PROCEDURE IN DETAIL: After review of informed consent, the patient was taken to the operating room, where general anesthesia was performed without complications. She was placed in the dorsal lithotomy position in Syed stirrups. The abdomen and perineum were prepped and draped in normal sterile fashion. An exam under anesthesia was performed. A bivalve speculum was placed in the vagina. A single-tooth tenaculum was placed on the anterior lip of the cervix. The cervix was dilated to accommodate the Hulka uterine manipulator. The single-tooth tenaculum was removed. The Lin was then placed in the sterile fashion, placed to dependent drainage. Gloves were changed. Attention was placed to the abdomen. A 5 mm skin incision was made inferior to the umbilicus after infusion of marcaine 0.25% with epi. A direct visual entry was performed. After abdominal entry was confirmed, the abdomen was insufflated. After injecting with Marcaine 0.25% with epinephrine, Two lower quadrant 5 mm incisions were made with a scalpel, and two accessory trochars were placed under direct visualization. The abdomen was then inspected. Intraoperative findings, of note, there was evidence of prior partial salpingectomy but bilateral fimbriated ends were present. The uterus was enlarged and had appearance of adenomyosis and several fibroids that increased the complexity of the procedure. There was evidence of likely endometriosis in the right broad ligament and anterior left lower uterine segment. The Harmonic was used during the case. The harmonic was used to hydrodesicate and transect the mesosalpinx of the right tube. This specimen was removed through the trocar. The infundibulopelvic ligament on the left was hydrodessicated and transected and from the uterus. The specimen was placed in the posterior cul de sac and removed during the vaginal portion of the procedure. The right ovary and IP was in close proximity to the ureter and it was felt to be unsafe to remove ovary as there was risk of thermal spread injury; ovary appeared benign. The bilateral round ligament were transected with the Harmonic. The anterior leaf of the broad ligament was transected in a medial- caudal fashion to develop the bladder flap bilaterally. There was an adhesion of the bladder to the lower uterine segment; this was taken down with the harmonic. Serial bites were taken down to the level of the uterine artery. On the left side, uterine artery was hydrodesicated with the Harmonic; min bleeding noted, reinforced with Kleppinger. Minimal oozing from ovarian edge reinforced with Kleppinger on the right side. All instruments were removed from the abdomen. The abdomen was desufflated. Attention was turned to the pelvis. A weighted speculum was placed in the vagina and a [place] anteriorly. The cervix was grasped with a single-tooth tenaculum. The [place] was removed. Marcaine 0.25% with epinephrine was injected in a circumferential fashion around the anterior portion of the cervix. The cervix was circumscribed with the Bovie. The anterior cul-de-sac was entered with Metzenbaum scissors. Of note the cervix was deviated to the left side. Left lateral of the colpotomy, the tissue was thickened and felt scarred. A wendy was placed in the anterior cul-de-sac to elevate and protect the bladder. The posterior cul-de-sac was entered with Osborne scissors. The peritoneum was tagged to the posterior cul-de-sac. The uterosacral ligaments bilaterally were clamped with a Noe clamp. These were cut, suture ligated with a fixation stitch of 0 vicryl and tagged. Serial bites were taken to the cardinal ligament on the left. The girth of the lower uterine segment made it difficult to place further clamps on the right aspect of the uterus. Decision was made to return to laparoscopy. Speculum and wendy were removed and a moisten laparotomy sponge was placed in the vagina to maintain pneumoperitoneum. The abdomen was insufflated and the harmonic was used to take further bites on the right cardinal ligament and further develop the anterior colpotomy. The lsc tools were removed and the abdomen was desufflated. Attention was then returned to the perineum. The fundus of the uterus was delivered using towel clamps. The uterus was debulked by performing a myomectomy. This allowed for visualization of the last remaining attachment of the uterus to the right side. This was clamped cut and doubly suture ligated. Irrigation was performed. There was good hemostasis noted. The posterior peritoneum and the vaginal mucosa were reapproxiamted in a running locked fashion with 0 Vicryl. The cuff was closed in a vertical fashion with 0 Vicryl in a running fashion. The vagina was irrigated and noted to be hemostatic. Good support of the cuff and vagina were noted. Gloves were changed again and attention was turned to the abdomen. The abdomen was insufflated and inspection was performed again. Irrigation and suction performed. Jamil was placed on all pedicles. All instruments were removed. The abdomen was desufflated. The trocars were removed after five deep Valsalva breaths were given. The skin was closed with 4-0 Monocryl. Steri-Strips were applied. The patient tolerated the procedure well. Anesthesia was reversed without complication. She was taken to PACU in stable condition.
[2018-05-18] MEDS ORDERED: *morphine SULFATE 4 MG/ML PERIprocedure ONLY ONE ×3 (11:53→12:31)
[2018-05-18] MEDS ORDERED: Morphine Inj 4 MG/ML Vial ONE (11:54)
[2018-05-18 12:57] LABS: Hematocrit 25.4 % (35.0-46.0); Hemoglobin 8.1 gm/dL (11.6-15.3)
[2018-05-18] MEDS: Ibuprofen 600 MG Tablet PO PRN (22:35)
[2018-05-19] MEDS: Ibuprofen 600 MG Tablet PO PRN (04:20)
[2018-05-19 04:30] VITALS: PULSE 60
[2018-05-19 05:53] LABS: Baso % (Auto) 0.1 % (0.0-2.0); Hematocrit 23.4 % (35.0-46.0); Hemoglobin 7.7 gm/dL (11.6-15.3); Lymph # (Auto) 1.2 th/mm3 (1.0-4.8); Lymph % (Auto) 9.5 % (9.0-44.0); Mean Corpuscular HGB Conc 32.8 % (32.0-36.0); Mean Corpuscular Hemoglobin 26.1 pg (27.0-34.0); Mean Corpuscular Volume 79.6 fL (80.0-100.0); Mean Platelet Volume 9.6 fL (7.0-11.0); Mono # (Auto) 0.9 th/mm3 (0.0-0.9); Mono % (Auto) 7.2 % (0.0-8.0); Neut # (Auto) 10.6 th/mm3 (1.8-7.7); Neut % (Auto) 83.2 % (16.0-70.0); Platelet Count 168 th/mm3 (150-450); Red Blood Count 2.94 mil/mm3 (4.00-5.30); Red Cell Distribution Width 20.2 % (11.6-17.2); White Blood Count 12.7 th/mm3 (4.0-11.0)
--- NOTE | 2018-05-19 09:00 | P.PNOB ---
Assessment and Plan - Postoperative Procedures Operation Date: 05/18/18 08:30 Actual Procedures Side Surgeon p LAPAROSCOPIC ASSISTED VAGINAL HYSTERECTOMY, BILATERAL SALPINGECTOMY, LEFT OOPHORECTOMY, EXAM UNDER ANESTHESIA, ANTERIOR REPAIR Farheen Pressley MD Postoperative day: 1 Postoperative status: doing well Postoperative plan: routine post-op care (reviewed anemia, will start iron 1 wk postop. Discussed s/sx of anemia that may require transfusion. Does not feel symptomatic presently. Once she is able to void, will d/c home. She had n from percocet, will give zofran rx. ), discharge - Time Spent With Patient Total time spent is greater than 50% in coordination of care (as documented) at patient's floor/unit and/or counseling patient: 25 - 35 minutes Subjective Subjective: patient reports feeling better, patient desires discharge, pain is well controlled, patient is tolerating oral intake (still needs to void. Has passed flatus and ambulating. Did not have sob, palpitations w activity.) Physical Exam Vital signs: Temp Pulse Resp BP Pulse Ox 98.6 F 60 18 98/58 L 100 05/19/18 04:15 05/19/18 04:15 05/19/18 04:15 05/19/18 04:15 05/19/18 04:15 - Constitutional no acute distress - Routine Chest/Breast/Axilla Exam Chest wall: Absent: tenderness - Routine Respiratory Exam Absent: accessory muscle use, decreased breath sounds, respiratory distress, wheezes, crackles - Routine Abdominal Exam Present: soft, normoactive bowel sounds, surgical scars (lsc incision c/d/i). Absent: tenderness, distended, rebound, guarding - Routine Extremities Exam Absent: cyanosis, clubbing, edema - Urinary Catheter Management Indwelling Urethral Catheter Cath placed during this visit: yes, but has since been removed by the nurse Urethral indwelling: No Insertion date: 05/18/18 Insertion time: 08:50 Removal date: 05/19/18 Removal time: 05:00 Results - Labs CBC & Chem 7: 05/19/18 04:59 Labs: Laboratory Results - last 24 hr 05/18/18 05/19/18 12:40 04:59 WBC 12.7 H RBC 2.94 L Hgb 8.1 L 7.7 L Hct 25.4 L 23.4 L MCV 79.6 L MCH 26.1 L MCHC 32.8 RDW 20.2 H Plt Count 168 MPV 9.6 Neut % (Auto) 83.2 H Lymph % (Auto) 9.5 [place] % (Auto) 7.2 Eos % (Auto) 0.0 Baso % (Auto) 0.1 Neut # (Auto) 10.6 H Lymph # (Auto) 1.2 [place] # (Auto) 0.9 Eos # (Auto) 0.0 Baso # (Auto) 0.0 WBC Differential . Differential Comment Auto diff final
[2018-05-19 09:10] VITALS: BP 91/57; RESP 20; TEMP 98.2; O2SAT 99
== END 2018-05-19 12:10 | disposition home or self-care (01) ==
LOC: HSDC 06:31 → HSDI 06:31 → H1EA 13:52
PROVIDERS: ADMIT Obstetrics & Gynecology; ATTEND Obstetrics & Gynecology